=== PATIENT | male | born 1935 | race African-American/Black ===

== ENCOUNTER 2017-08-07 09:18 | Emergency (ER) | payer MEDICARE ==
--- NOTE | 2017-08-07 10:49 | ER Document Report ---
HPI - HPI Patient complains to provider of: choking on chicken Onset: Yesterday Onset/Duration: Sudden Quality of pain: Other - sore Pain Level: 4 Context: Patient presents to emergency department with complaints of feeling like he is choking on some chicken. Patient reports he ate breaded chicken last night for dinner. He choked on it. He reports since that time he feels like there is some in his throat. He had tea afterwards. This morning he drank coffee and had eggs. He reports this never happened to him before. Patient speaking in clear voice no distress no coughing. Denies vomiting. Associated Symptoms: None Exacerbated by: Denies Relieved by: Denies Similar symptoms previously: No Recently seen / treated by doctor: No - EENT EENT: REPORTS: Sore Throat - DERM Skin Color: Normal Past Medical History - General Information source: Patient - Social History Smoking Status: Never Smoker Cigarette use (# per day): No Chew tobacco use (# tins/day): No Frequency of alcohol use: None Drug Abuse: None Lives with: Family Family History: None Patient has suicidal ideation: No Patient has homicidal ideation: No - Past Medical History Cardiac Medical History: Reports: Hx Hypertension Endocrine Medical History: Reports: Hx Diabetes Mellitus Type 2 Renal/ Medical History: Denies: Hx Peritoneal Dialysis Surgical Hx: Negative Vertical Provider Document - CONSTITUTIONAL Agree With Documented VS: Yes Exam Limitations: No Limitations General Appearance: WD/WN, No Apparent Distress - speaking in clear voice - INFECTION CONTROL TRAVEL OUTSIDE OF THE [place] IN LAST 30 DAYS: No - HEENT HEENT: Atraumatic, Normocephalic. negative: Pharyngeal Exudate, Pharyngeal Erythema - NECK Neck: Normal Inspection, Supple. negative: Lymphadenopathy-Left, Lymphadenopathy-Right - RESPIRATORY Respiratory: Breath Sounds Normal, No Respiratory Distress O2 Sat by Pulse Oximetry: 100 - CARDIOVASCULAR Cardiovascular: Regular Rate - GI/ABDOMEN Gastrointestinal: Abdomen Soft, Abdomen Non-Tender - MUSCULOSKELETAL/EXTREMETIES Musculoskeletal/Extremeties: AVI STONER - NEURO Level of Consciousness: Awake, Alert, Appropriate Motor/Sensory: No Motor Deficit - DERM Integumentary: Warm, Dry Course - Re-evaluation Re-evalutation: 08/07/17 11:56 Pt sitting calmly waiting for radiology to perform barium swallow study. 08/07/17 Pt and son instructed on study, no c/o looks good, no distress, clear voice. instructed on foods to avoid, diet, importance of fu with pcp wednesday. - Vital Signs Vital signs: Temp Pulse Resp BP Pulse Ox 98.2 F 93 18 165/72 H 100 08/07/17 09:27 08/07/17 09:27 08/07/17 09:27 08/07/17 09:27 08/07/17 09:27 - Diagnostic Test Radiology reviewed: Image reviewed, Reports reviewed - no pharyngeal FB Discharge - Discharge Clinical Impression: Choking sensation Condition: Stable Disposition: HOME, SELF-CARE Additional Instructions: *You have been evaluated for a choking sensation, sore throat *No foreign body was found on your barium swallow *Warm salt water gargles and throat lozenges for comfort *Avoid acidy foods such as orange juice, ketchup *Eat soft foods, advance as tolerated *Follow-up with a primary care provider within one week for recheck *Return to ED for worsening condition change, needs, trouble swallowing, concerns, vomiting Monitor your blood pressure. Your blood pressure was elevated today. This may be because you were anxious, in pain or because you need medication. It is important to follow up with your primary care provider for full evaluation. Forms: Elevated Blood Pressure
--- NOTE | 2017-08-07 13:25 | RADIOLOGY REPORT (SQ) ---
EXAM DESCRIPTION: BARIUM SWALLOW PHARYNX ONLY COMPLETED DATE/TIME: 08/07/2017 1:04 pm REASON FOR STUDY: chicken stuck COMPARISON: None. TECHNIQUE: Under fluoroscopic guidance, patient ingested effervescent granules followed by thick and thin barium. Fluoroscopic spot images and routine radiographic images acquired and stored on PACS. 12 MM BARIUM TABLET GIVEN: Yes. No significant delay in passage. LIMITATIONS: None. FLUOROSCOPY TIME: FLUORO TIME: 1 minutes 15 seconds 7 images saved to PACS. FINDINGS: NEUROMUSCULAR COORDINATION OF SWALLOW: . No aspiration. ESOPHAGEAL MOTILITY: Tertiary contraction. No esophageal spasm. ESOPHAGEAL MUCOSA: Normal mucosa without masses or ulceration. No foreign body GASTRO-ESOPHAGEAL JUNCTION: Small hiatal hernia, no reflux. NON-GI TRACT STRUCTURES: No significant finding. OTHER: Cervical hardware. IMPRESSION: Mild dysmotility with a small hiatal hernia. No reflux was noted during study. Cervica l hardware in place. No evidence of pharyngeal foreign body. COMMENT: Quality ID [id number]: Final reports for procedures using fluoroscopy that document radiation exp osure indices, or exposure time and number of fluorographic images (if radiation exposure indices are not available) TECHNICAL DOCUMENTATION: JOB ID: [id number] NC-62 2010 [employer]- All Rights Reserved
[2017-08-07 13:34] VITALS: BP 153/68
== END 2017-08-07 13:35 | disposition home or self-care (01) ==
LOC: ER 09:18
DX: R09.89 Other specified symptoms and signs involving the circulatory and respiratory systems (principal); J02.9 Acute pharyngitis, unspecified; I10 Essential (primary) hypertension; E11.9 Type 2 diabetes mellitus without complications
CPT/HCPCS: 74210; 99284

== ENCOUNTER 2019-01-18 10:41 | Emergency (ER) | payer MEDICARE ==
--- NOTE | 2019-01-18 12:21 | ER Document Report ---
ED Medical Screen (RME) - General Chief Complaint: Foot Pain Stated Complaint: FOOT PAIN Time Seen by Provider: 01/18/19 12:18 Mode of Arrival: Ambulatory Information source: Patient Notes: 83-year-old male presented to ED for complaint of swelling to both feet and legs for the last 6 months. He states he will retrain down here from [place]. His primary care doctor is in [place] and has not been back to see him. He is a diabetic type II. He states he does not feel his feet due to the diabetes. He states they are just getting bigger and he was concerned so he came to the emergency room. Patient is alert oriented respirations regular and unlabored. I do not see any acute injuries or ulcers at this time. I have greeted and performed a rapid initial assessment of this patient. A comprehensive ED assessment and evaluation of the patient, analysis of test results and completion of medical decision making process will be conducted by an additional ED providers. Dictation of this chart was performed using voice recognition software; therefore, there may be some unintended grammatical errors. TRAVEL OUTSIDE OF THE [place] IN LAST 30 DAYS: No - Related Data Allergies/Adverse Reactions: No Known Allergies Allergy (Verified 01/18/19 10:46) Past Medical History - Past Medical History Cardiac Medical History: Reports: Hx Hypertension Endocrine Medical History: Reports: Hx Diabetes Mellitus Type 2 Renal/ Medical History: Denies: Hx Peritoneal Dialysis Physical Exam - Vital signs Vitals: Temp Pulse Resp BP Pulse Ox 98 F 70 16 178/69 H 96 01/18/19 10:48 01/18/19 10:48 01/18/19 10:48 01/18/19 10:48 01/18/19 10:48 Course - Vital Signs Vital signs: Temp Pulse Resp BP Pulse Ox 98 F 70 16 178/69 H 96 01/18/19 10:48 01/18/19 10:48 01/18/19 10:48 01/18/19 10:48 01/18/19 10:48
[2019-01-18 12:42] LABS: ABSOLUTE EOSINOPHILS # (AUTO) 0.2 10^3/uL (0.0-0.6); ABSOLUTE LYMPHOCYTES (AUTO) 1.2 10^3/uL (0.5-4.7); ABSOLUTE MONOCYTES (AUTO) 0.4 10^3/uL (0.1-1.4); ABSOLUTE NEUT (AUTO) 2.3 10^3/uL (1.7-8.2); BASOPHILS % (AUTO) 0.6 % (0-2); EOSINOPHILS % (AUTO) 4.9 % (0-6); HEMATOCRIT 40.5 % (37.9-51.0); HEMOGLOBIN 13.1 g/dL (13.5-17.0); LYMPHOCYTES % (AUTO) 29.2 % (13-45); MEAN CORPUSCULAR HEMOGLOBIN 27.1 pg (27.0-33.4); MEAN CORPUSCULAR HGB CONC 32.4 g/dL (32.0-36.0); MEAN CORPUSCULAR VOLUME 84 fl (80-97); MONOCYTES % (AUTO) 9.1 % (3-13); PLATELET COUNT 139 10^3/uL (150-450); RED BLOOD COUNT 4.85 10^6/uL (4.35-5.55); RED CELL DISTRIBUTION WIDTH 13.8 % (11.5-14.0); SEGMENTED NEUTROPHILS % (AUTO) 56.2 % (42-78); TOTAL CELLS COUNTED % (AUTO) 100 %; WHITE BLOOD COUNT 4.1 10^3/uL (4.0-10.5)
[2019-01-18 12:47] LABS: APPEARANCE,URINE CLEAR; BILIRUBIN,URINE NEGATIVE (NEGATIVE); COLOR,URINE YELLOW; GLUCOSE, URINE 50 mg/dL (NEGATIVE); KETONES,URINE NEGATIVE (NEGATIVE); LEUKOCYTE ESTERASE,URINE NEGATIVE (NEGATIVE); NITRITE,URINE NEGATIVE (NEGATIVE); PROTEIN,URINE 30 mg/dL (NEGATIVE); URINE SPECIFIC GRAVITY 1.014; UROBILINOGEN,URINE NEGATIVE mg/dL (<2.0)
[2019-01-18 13:17] LABS: ALANINE AMINOTRANSFERASE 16 U/L (21-72); ALBUMIN 4.5 g/dL (3.5-5.0); ALKALINE PHOSPHATASE 71 U/L (38-126); ANION GAP 14 (5-19); ASPARTATE AMINO TRANSFERASE 24 U/L (17-59); BILIRUBIN,DIRECT 0.2 mg/dL (0.0-0.4); BILIRUBIN,TOTAL 0.7 mg/dL (0.2-1.3); BLOOD UREA NITROGEN 39 mg/dL (7-20); CALCIUM 10.1 mg/dL (8.4-10.2); CARBON DIOXIDE 23 mmol/L (22-30); CHLORIDE 107 mmol/L (98-107); GLUCOSE 206 mg/dL (75-110); POTASSIUM 5.3 mmol/L (3.6-5.0); SODIUM 143.7 mmol/L (137-145); TOTAL PROTEIN 7.8 g/dL (6.3-8.2)
--- NOTE | 2019-01-18 14:51 | RADIOLOGY REPORT (SQ) ---
EXAM DESCRIPTION: VENOUS BILATERAL LOWER COMPLETED DATE/TIME: 01/18/2019 2:41 pm REASON FOR STUDY: Swelling both legs after riding here in a train 6 COMPARISON: None. TECHNIQUE: Dynamic and static sher scale and color images acquired of both lower extremity venous sy stems. Selected spectral images acquired with additional compression and augmentation maneuvers. Imag es stored on PACS. LIMITATIONS: Peroneal veins are difficult to visualize bilaterally FINDINGS: RIGHT LEG COMMON FEMORAL AND FEMORAL: Normal phasicity, compression and augmentation. No visualized echogenic m aterial on sher scale. No defects on color images. POPLITEAL: Normal compression and augmentation. No visualized echogenic material on sher scale. No de fects on color images. CALF VESSELS: Normal compression and augmentation. No visualized echogenic material on sher scale. No defects on color image. GSV AND SSV: Normal compression. No visualized echogenic material on sher scale. No defects on color images. ANY DEEP VENOUS INSUFFICIENCY: No reflux on Valsalva ANY EVIDENCE OF POPLITEAL CYST: No. OTHER: No other significant finding. LEFT LEG COMMON FEMORAL AND FEMORAL: Normal phasicity, compression and augmentation. No visualized echogenic m aterial on sher scale. No defects on color images. POPLITEAL: Normal compression and augmentation. No visualized echogenic material on sher scale. No de fects on color images. CALF VESSELS: Normal compression and augmentation. No visualized echogenic material on sher scale. No defects on color images. GSV AND SSV: Normal compression. No visualized echogenic material on sher scale. No defects on color images. ANY DEEP VENOUS INSUFFICIENCY: No reflux on Valsalva ANY EVIDENCE POPLITEAL CYST: No. OTHER: No other significant finding. IMPRESSION: NO EVIDENCE DVT OR SVT IN EITHER LEG. TECHNICAL DOCUMENTATION: JOB ID: [id number] [employer]- All Rights Reserved Reading location - IP/workstation name: [email or web address]
[2019-01-18] MEDS ORDERED: FUROSEMIDE 20 MG TABLET PO ONE (16:55)
--- NOTE | 2019-01-18 17:30 | ER Document Report ---
ED General - General Chief Complaint: Foot Pain Stated Complaint: FOOT PAIN Time Seen by Provider: 01/18/19 12:18 Mode of Arrival: Ambulatory TRAVEL OUTSIDE OF THE [place] IN LAST 30 DAYS: No - HPI Notes: Patient is a 89-year-old male who presents emergency department for evaluation of lower extremity edema. Is been going on for at least 6 months. He is down here visiting his son. He states he has been here since August, plans to stay here until March. He initially told me that the edema started here, but on further questioning states his primary care physician had prescribed compression stockings for him back in July. He states he has not been wearing them, states they are not here with him. He denies any chest pain or difficulty breathing. He states the swelling just continues to slowly get worse so he presents to the emergency department for evaluation. He states his right lower extremity is always more swollen than the left, after a burn he sustained to his right leg working several decades ago. - Related Data Allergies/Adverse Reactions: No Known Allergies Allergy (Verified 01/18/19 10:46) Past Medical History - General Information source: Patient - Social History Smoking Status: Never Smoker Family History: None, DM Patient has suicidal ideation: No Patient has homicidal ideation: No - Past Medical History Cardiac Medical History: Reports: Hx Hypertension Endocrine Medical History: Reports: Hx Diabetes Mellitus Type 2 Renal/ Medical History: Denies: Hx Peritoneal Dialysis Review of Systems - Review of Systems Constitutional: No symptoms reported EENT: No symptoms reported Cardiovascular: No symptoms reported Respiratory: No symptoms reported Gastrointestinal: No symptoms reported Genitourinary: No symptoms reported Musculoskeletal: See HPI Skin: No symptoms reported Neurological/Psychological: No symptoms reported Physical Exam - Vital signs Vitals: Temp Pulse Resp BP Pulse Ox 98 F 70 16 178/69 H 96 01/18/19 10:48 01/18/19 10:48 01/18/19 10:48 01/18/19 10:48 01/18/19 10:48 - Notes Notes: Vital signs reviewed, please refer to chart. Head is normocephalic, atraumatic. Pupils equal round, reactive to light. Neck is supple without meningismus. Heart is regular rate and rhythm. Lungs are clear to auscultation bilaterally. Abdomen is soft, nontender, normoactive bowel sounds throughout. Extremities without cyanosis, clubbing. Patient has 3+ pitting edema to the right lower extremity, 2+ pitting edema to the left. Posterior calves are nontender. Peripheral pulses are equal. Skin is warm and dry. Patient is awake, alert, neurological exam is nonfocal. Course - Re-evaluation Re-evalutation: 01/18/19 18:10 Patient presents emergency department for evaluation. He was evaluated first through triage. Laboratory investigations and imaging as ordered. Doppler was negative bilaterally. Laboratory investigations revealed abnormal renal function with a mild hyperkalemia. Patient was administered Lasix here. I did discuss findings with the patient. He is unsure as to whether or not he has abnormal renal function. I explained to him what his numbers showed today. I explained to him that he needs to follow-up with outpatient. I told him he should call his primary doctor back in [place] and let them know his numbers. He should also obtain care locally here. He was amenable to this plan. I discussed this with his son as well. He is also told that he should get some compression stockings and continue to wear them here. He voiced understand symptoms of any sort. - Vital Signs Vital signs: Temp Pulse Resp BP Pulse Ox 98 F 70 16 178/69 H 96 01/18/19 10:48 01/18/19 10:48 01/18/19 10:48 01/18/19 10:48 01/18/19 10:48 - Laboratory Result Diagrams: 01/18/19 12:32 01/18/19 12:32 Laboratory results interpreted by me: 01/18/19 01/18/19 01/18/19 12:32 12:32 12:32 Hgb 13.1 L Plt Count 139 L Potassium 5.3 H BUN 39 H Creatinine 1.89 H Est GFR ( Amer) 42 L Est GFR (Non-Af Amer) 34 L Glucose 206 H ALT 16 L Urine Protein 30 H Urine Glucose (UA) 50 H Urine Blood SMALL H - Diagnostic Test Radiology reviewed: Reports reviewed Radiology results interpreted by me: 01/18/19 18:12 Venous Doppler Study 01/18/19 12:19 IMPRESSION: NO EVIDENCE DVT OR SVT IN EITHER LEG. Discharge - Discharge Clinical Impression: Lower extremity edema, Abnormal renal function, Hyperkalemia Condition: Stable Disposition: HOME, SELF-CARE Instructions: Dependent Edema ([facility]), Kidney Function Abnormality ([facility]) Additional Instructions: Wear your compression stockings as you have been told. Continue to take your regular medications as prescribed. Your kidney function was abnormal today, with a creatinine of 1.9. I do not know what your baseline is. You should contact your primary doctor in [place] and find out your baseline. You should also follow-up with a doctor here locally. Our on-call doctor is listed below. Return to the emergency department with worsening or new concerning symptoms of any sort.
[2019-01-18 18:10] VITALS: BP 162/46
== END 2019-01-18 18:10 | disposition home or self-care (01) ==
LOC: ER 10:41
DX: R60.0 Localized edema (principal); Z91.19 Patient's noncompliance with other medical treatment and regimen; R94.4 Abnormal results of kidney function studies; E87.5 Hyperkalemia; I10 Essential (primary) hypertension; E11.9 Type 2 diabetes mellitus without complications
CPT/HCPCS: 99284; 36415; 85025; 80053; 81001; 93970; A9270